=== PATIENT | female | born 1930 | race Caucasian/White ===

== ENCOUNTER 2016-07-06 07:59 | Emergency (ER) | payer MEDICARE ==
--- NOTE | ~2016-07-06 | ER ---
PATIENT'S NAME: REA COON [facility] AGE: 86 Y [address] ROOM: [place] [address] LOCATION: ED ADMIT DATE: 07/06/2016 ER/Outpatient Report DISCHARGE DATE: 07/06/2016 FAMILY PHYSICIAN: Lionel Prince PA-C ATTENDING PHYSICIAN: Nitesh Michaels Admission date and time documented on the medical record. I saw the patient at 0810 hours. CHIEF COMPLAINT: Vaginal prolapse and groin hernia. HISTORY OF PRESENT ILLNESS: The patient is an 86-year-old female, who was brought to the emergency room by [facility] via ambulance for evaluation. Over the past 6 hours, she has had increased vaginal prolapse and increased right groin hernia size that she was concerned about. She has a little bit of abdominal pain in the right lower quadrant. No nausea, vomiting, or diarrhea. No recent urinary symptomatology. No fever, chills, sweats, coughs, colds, and flus. No lightheadedness, dizziness, syncope, or near syncope. No fall or trauma. No headache, eyes, ears, nose, throat, neck, or spine pain. No chest pain, shortness of breath. No joint or muscle swelling, redness, or pain. No skin eruptions or rash. Does have a history of hypothyroidism and non-insulin- dependent diabetes mellitus type 2. No CVA, TIA, or seizure disorder. No psych issues. HOME MEDICATIONS: See attached medication list. ALLERGIES: PENICILLIN, INFLUENZA VACCINE, EGGS, AND BLUEBERRIES. SOCIAL HISTORY: Nonsmoker, occasional intake of alcohol. SIGNIFICANT PAST MEDICAL HISTORY: Atherosclerotic ischemic heart disease with coronary artery disease, gastroesophageal reflux, glaucoma, legally blind, hypothyroidism, lumbosacral stenosis, vertebral compression fractures T12-L3, chronic AFib, chronic anticoagulation with Coumadin, degenerative osteoarthritis, degenerative joint disease, DVT, obesity, [id number] diabetes mellitus type 2, hypertension, dyslipidemia. OPERATIONS: Hysterectomy, cholecystectomy, right total shoulder arthroplasty. PATIENT'S NAME: REA COON [facility] AGE: 86 Y [address] ROOM: [place] [address] LOCATION: ED ADMIT DATE: 07/06/2016 ER/Outpatient Report DISCHARGE DATE: 07/06/2016 FAMILY PHYSICIAN: Lionel Prince PA-C ATTENDING PHYSICIAN: Nitesh Michaels ROS: All systems reviewed by me are negative with the exception of those discussed in the history of present illness. PHYSICAL EXAMINATION: VITAL SIGNS: Temperature 97.9, tympanic; pulse 77; respiratory rate 18; blood pressure 166/73; O2 saturation on room air is 94%. HEENT: Head: Normocephalic. Eyes: Clear. Ears: Clear TMs bilaterally. Nose and Throat: Clear. Mucous membranes are moist. NECK: Negative. SPINE: Negative. LUNGS: Clear, good air flow. No rales, rhonchi, or wheezes. HEART: Regular. Pulses are palpable. ABDOMEN: Soft. Some tenderness in the right lower quadrant of the abdomen. Bowel tone is present. No organomegaly palpable. The patient has a right groin hernia, reducible. GENITALIA: The patient has vaginal prolapse, probably cystocele. It was pushed back up into her vagina. There were no vaginal masses. EXTREMITIES: Intact. NEUROVASCULAR: Intact. The patient is legally blind. SKIN: Clear. IMPRESSION: 1. Right groin hernia, reducible. 2. Vaginal prolapse, probably cystocele. PLAN: The patient was discharged from the emergency department back to [facility]. Continue present medications and treatment. Return to see personal physician mid next week. Discussion ensued with the patient concerning my findings and recommendations, she understands. MD KIAH HERRERA/modl /[id number] d: 07/06/16 0954 t: 07/07/16 1814, OUTPATIENT REPORT
[~2016-07-06 07:59] MED LIST: ALLOPURINOL300 MG PO; ALPHAGAN *P* 0.15 ML OPHTH; ASCORBIC ACID250 MG PO; BOT; BUMETANIDE2 MG PO; BUMEX1 MG PO; CALCIUM CARBON600 MG PO; CILOXAN5 ML OPHTH; COSOPT DROPS 1010 ML OPHTH; COUMADIN ** IA5 MG PO; COUMADIN **IA2.5 MG PO; DAILY MULTIPLE1 EAC1 PO; DULCOLAX5 MG PO; DURAGESIC 50MC50 MCG TOP; FEOSOL325 MG PO; FLONASE 50 MCG/16 GM INH; FOLIC ACID 40400 MCG PO; GLUCOPHAGE500 MG PO; I-VITE TABLET1 EACH PO; IMODIUM2 MG PO; INDERAL LA60 MG PO; K-TAB 10MEQ10 MEQ PO; LEVOTHROID (S112 MCG PO; LIPITOR40 MG PO; MAALOX LIQ UNIT30 ML PO; MILK OF MA400 MG/5 M PO; MIRALAX17 GM PO; MYCOLOG OINTMEN15 GM TOP; NITROSTAT0.4 MG SL; PEPTO BISMOL LIQ1 ML PO; PERCOCET 5-3251 EACH PO; PROTONIX40 MG PO; PYRIDIUM200 MG PO; ROBITUSSIN DM120 ML PO; SENOKOT S (S1 TABLET PO; TYLENOL325 MG PO; ULTRAM50 MG PO; VITAMIN B-12500 MCG PO; XALATAN2.5 ML OPHTH; XANAX0.25 MG PO; [UNRECOGNIZED DRUG - OTHER]
== END 2016-07-06 08:46 | disposition disaster alternative care site (69) ==
LOC: GMED 07:59
DX: K46.9 Unspecified abdominal hernia without obstruction or gangrene (principal); N81.10 Cystocele, unspecified; I25.10 Atherosclerotic heart disease of native coronary artery without angina pectoris; K21.9 Gastro-esophageal reflux disease without esophagitis; E03.9 Hypothyroidism, unspecified; I48.2 Chronic atrial fibrillation; I10 Essential (primary) hypertension; E78.5 Hyperlipidemia, unspecified; E11.9 Type 2 diabetes mellitus without complications; Z90.710 Acquired absence of both cervix and uterus; Z90.49 Acquired absence of other specified parts of digestive tract; Z98.890 Other specified postprocedural states